=== PATIENT | male | born 1955 | race African-American/Black ===

== ENCOUNTER 2018-03-23 12:12 | Inpatient (IN) | payer BC, OTHER ==
[~2018-03-23] VITALS: Ht 182.9 cm; Wt 84.5 kg
[~2018-03-23 12:12] MED LIST: GLUCOPHAGE500 MG; IBUPROFEN 600600 M1 PO; JANUVIA25 MG; NOVOLOG100 UNIT/1 SUBQ; QUINU5 PD
[2018-03-23 12:15] VITALS: BP 152/88
[2018-03-23 12:52] LABS: HEMATOCRIT 42.4 % (42.0-52.0); HEMOGLOBIN 14.2 gm/dL (14.0-18.0); MCH 27.8 pg (26.0-34.0); MCHC 33.4 g/dL (28.0-37.0); MCV 83.2 fL (80.0-100.0); PLATELET COUNT 240 thou/uL (150-400); RDW 14.6 % (10.5-14.5); WBC 19.1 thou/uL (4.0-11.0)
[2018-03-23 12:59] LABS: URINE BILIRUBIN NEGATIVE (Negative); URINE BLOOD 3+ (Negative); URINE CLARITY CLEAR; URINE COLOR YELLOW; URINE GLUCOSE-RANDOM* 3+ (Negative); URINE KETONES 1+ (Negative); URINE LEUKOCYTES-REFLEX NEGATIVE (Negative); URINE NITRITE-REFLEX NEGATIVE (Negative); URINE PROTEIN (DIPSTICK) 3+ (Negative); URINE SPECIFIC GRAVITY >= 1.030 (1.005-1.035)
[2018-03-23 13:11] LABS: FINE GRANULAR CASTS 4-10 Moderate /LPF (None Seen)
[2018-03-23 13:12] LABS: HYALINE CASTS 0-3 Few /LPF (None Seen)
[2018-03-23 13:13] LABS: CALCIUM 9.2 mg/dL (8.5-10.1); CREATININE 1.7 mg/dL (0.7-1.3); POTASSIUM 3.7 mmol/L (3.5-5.1)
[2018-03-23 13:14] LABS: BACTERIA-REFLEX 1-9 Few /HPF (None Seen); CRYSTALS None Seen /LPF (None Seen); SQUAMOUS 0-3 Few /LPF (0-3); URINE RBC 3-10 Few /HPF (0-2); URINE WBC-REFLEX 0-5 Rare /HPF (0-5)
[2018-03-23 13:15] LABS: ALBUMIN 2.4 g/dL (3.4-5.0); TOTAL BILIRUBIN 0.6 mg/dL (<0.1-1.0); TOTAL PROTEIN 8.4 g/dL (6.4-8.2)
[2018-03-23 13:46] LABS: HCO3 25.7 mmol/L (22.0-26.0); PCO2 VENOUS 37.6 mmHg (41.0-51.0); PO2 VENOUS 29.4 mmHg (35.0-45.0)
[2018-03-23 14:40] LABS: ABSOLUTE NEUTROPHILS 16.2 thou/uL (1.4-8.2)
[2018-03-23 14:41] LABS: ANISOCYTOSIS SLIGHT
[2018-03-23 14:57] VITALS: BP 128/67
[2018-03-23 15:47] LABS: TSH 0.413 uIU/mL (0.358-3.740)
[2018-03-23 17:34] VITALS: BP 122/70
[2018-03-23 19:22] VITALS: BP 143/79
[2018-03-24 03:55] VITALS: BP 146/94
[2018-03-24 05:14] LABS: HEMATOCRIT 42.7 % (42.0-52.0); HEMOGLOBIN 14.1 gm/dL (14.0-18.0); MCH 27.7 pg (26.0-34.0); MCHC 33.1 g/dL (28.0-37.0); MCV 83.9 fL (80.0-100.0); RBC 5.09 mil/uL (4.50-6.00); RDW 14.6 % (10.5-14.5); WBC 12.4 thou/uL (4.0-11.0)
[2018-03-24 05:25] LABS: CALCIUM 8.4 mg/dL (8.5-10.1); CREATININE 1.2 mg/dL (0.7-1.3); MAGNESIUM 2.1 mg/dL (1.8-2.4); POTASSIUM 3.5 mmol/L (3.5-5.1)
[2018-03-24 05:36] LABS: HDL CHOLESTEROL 18 mg/dL (>40); TRIGLYCERIDE 215 mg/dL (<150); VLDL 43 mg/dL (<40)
[2018-03-24 05:59] LABS: CHOLESTEROL 178 mg/dL (<200)
[2018-03-24 06:00] LABS: LDL CHOLESTEROL 117 mg/dL (<100); TC:HDL 9.9 Ratio (Not establshd)
[2018-03-24 19:32] VITALS: BP 125/92
[2018-03-25 05:17] VITALS: BP 141/94
[2018-03-25 06:06] LABS: HEMATOCRIT 39.4 % (42.0-52.0); HEMOGLOBIN 12.9 gm/dL (14.0-18.0); MCH 27.1 pg (26.0-34.0); MCHC 32.6 g/dL (28.0-37.0); MCV 83.1 fL (80.0-100.0); RBC 4.75 mil/uL (4.50-6.00); RDW 14.6 % (10.5-14.5); WBC 9.1 thou/uL (4.0-11.0)
[2018-03-25 06:19] LABS: CALCIUM 7.8 mg/dL (8.5-10.1); POTASSIUM 3.5 mmol/L (3.5-5.1)
[2018-03-25 06:57] VITALS: BP 130/77
[2018-03-25 16:33] VITALS: BP 152/85
[2018-03-25 19:51] VITALS: BP 144/86
[2018-03-25 23:07] LABS: GLYCOHEMOGLOBIN (HGB A1C) 11.3 % (4.8-5.6)
[2018-03-26 04:56] VITALS: BP 150/88
[2018-03-26 06:01] LABS: HEMATOCRIT 36.2 % (42.0-52.0); HEMOGLOBIN 11.9 gm/dL (14.0-18.0); MCH 27.3 pg (26.0-34.0); MCHC 32.8 g/dL (28.0-37.0); MCV 83.4 fL (80.0-100.0); RBC 4.34 mil/uL (4.50-6.00); RDW 14.9 % (10.5-14.5)
[2018-03-26 06:05] LABS: CALCIUM 7.6 mg/dL (8.5-10.1); CREATININE 0.9 mg/dL (0.7-1.3); MAGNESIUM 2.1 mg/dL (1.8-2.4); POTASSIUM 3.7 mmol/L (3.5-5.1)
[2018-03-26 08:06] VITALS: BP 152/74
[2018-03-26] MEDS ORDERED: CIPRO500 MG PO ×2 (10:43→10:50)
[2018-03-26] MEDS ORDERED: LISINOPRIL10 MG PO (10:43)
[2018-03-26] MEDS ORDERED: MUCINEX600 MG PO (10:43)
[2018-03-26] MEDS ORDERED: LIPITOR 20 MG T20 M1 PO (10:43)
[2018-03-26] MEDS ORDERED: NOVOLOG100 UNIT/M SUBQ ×2 (10:43→10:50)
[2018-03-26] MEDS ORDERED: LANTUS100 UNIT/M SUBQ (10:43)
[2018-03-26] MEDS ORDERED: PROBIOTIC1 EAC1 PO (10:43)
[2018-03-26] MEDS ORDERED: GLUCOMETER (10:43)
[2018-03-26 11:30] VITALS: BP 152/74
== END 2018-03-26 13:00 | disposition home or self-care (01) | DRG 871 ==
LOC: ER 12:12 → EROBS 14:23 → 4E 14:23 → ENTRNSPT 03-26 13:04 → EDTRNSPTSTS 03-26 13:10
PROVIDERS: Internal Medicine; Nurse Practitioner Family
DX: A41.9 Sepsis, unspecified organism (principal); E43 Unspecified severe protein-calorie malnutrition; N17.0 Acute kidney failure with tubular necrosis; J18.1 Lobar pneumonia, unspecified organism; E87.1 Hypo-osmolality and hyponatremia; E87.0 Hyperosmolality and hypernatremia; E11.65 Type 2 diabetes mellitus with hyperglycemia; R65.20 Severe sepsis without septic shock; F17.210 Nicotine dependence, cigarettes, uncomplicated; E78.5 Hyperlipidemia, unspecified; E87.8 Other disorders of electrolyte and fluid balance, not elsewhere classified; N18.9 Chronic kidney disease, unspecified; I12.9 Hypertensive chronic kidney disease with stage 1 through stage 4 chronic kidney disease, or unspecified chronic kidney disease; E11.22 Type 2 diabetes mellitus with diabetic chronic kidney disease; Z68.25 Body mass index [BMI] 25.0-25.9, adult; Z79.899 Other long term (current) drug therapy
CPT/HCPCS: 10183

== ENCOUNTER 2020-11-04 19:25 | Inpatient (IN) | payer OTHER, BC ==
[~2020-11-04] VITALS: Ht 180.3 cm; Wt 91.6 kg
[~2020-11-04 19:25] MED LIST changes: +CIPRO500 MG PO; +GLUCOMETER; +LANTUS100 UNIT/M SUBQ; +LIPITOR 20 MG T20 M1 PO; +LISINOPRIL10 MG PO; +MUCINEX600 MG PO; +NOVOLOG100 UNIT/M SUBQ; +PROBIOTIC1 EAC1 PO
[2020-11-04 19:38] VITALS: BP 220/110
[2020-11-04] MEDS ORDERED: ZESTRIL40 MG PO (19:46)
[2020-11-04] MEDS ORDERED: BYDUREON B2 MG/0.85 SUBQ (19:47)
[2020-11-04] MEDS ORDERED: TRESIBA FL200 UNIT/1 SUBQ (19:47)
[2020-11-04] MEDS ORDERED: HUMALOG100 UNIT/1 SUBQ (19:48)
[2020-11-04 20:32] LABS: ABSOLUTE NEUTROPHILS 3.7 thou/uL (1.4-8.2); BASOPHILS 1.1 % (0.0-2.0); EOSINOPHILS 4.3 % (0.0-3.0); HEMATOCRIT 39.9 % (42.0-52.0); HEMOGLOBIN 13.4 gm/dL (14.0-18.0); LYMPHOCYTES 22.6 % (24.0-44.0); MCH 28.2 pg (26.0-34.0); MCHC 33.5 g/dL (28.0-37.0); PLATELET COUNT 292 thou/uL (150-400); RBC 4.75 mil/uL (4.50-6.00); RDW 15.2 % (10.5-14.5); WBC 6.5 thou/uL (4.0-11.0)
[2020-11-04 20:35] LABS: ANION GAP 2 mmol/L (7-16); BUN 12 mg/dL (7-18); CALCIUM 8.6 mg/dL (8.5-10.1); CHLORIDE 108 mmol/L (98-107); CO2 30 mmol/L (21-32); CREATININE 1.4 mg/dL (0.7-1.3); GLUCOSE 107 mg/dL (74-106); POTASSIUM 3.9 mmol/L (3.5-5.1); SODIUM 140 mmol/L (136-145)
[2020-11-04 20:45] LABS: ALBUMIN 2.5 g/dL (3.4-5.0); SGOT 20 U/L (15-37); SGPT 30 U/L (16-63); TOTAL BILIRUBIN 0.2 mg/dL (0.2-1.0); TOTAL PROTEIN 6.4 g/dL (6.4-8.2); TROPONIN-I <0.06 ng/mL (<0.06)
[2020-11-04 22:38] VITALS: BP 191/82
[2020-11-04 22:49] VITALS: BP 198/95
[2020-11-04 23:17] VITALS: BP 191/90
[2020-11-05] VITALS (7 sets, daily range): BP systolic 160–194; BP diastolic 66–111
--- NOTE | 2020-11-05 04:33 | NUR ---
PT FROM ER VIA CART. ADMISSION COMPLETED, CARE PLAN STARTED, INTERVENTIONS CLEANED UP AND IN PLACE. PT IS A/0X4 AND UP AD AUBREY. PT IS NPO FOR CARDIAC PROCEDURES THIS AM. POC ELEVATED BP. CONSULT TO CARDIAC GROUP WILL BE PLACED THIS AM. HOURLY ROUNDING.
[2020-11-05 06:20] LABS: ANION GAP 10 mmol/L (7-16); BUN 10 mg/dL (7-18); CALCIUM 8.3 mg/dL (8.5-10.1); CHLORIDE 107 mmol/L (98-107); CO2 25 mmol/L (21-32); CREATININE 1.2 mg/dL (0.7-1.3); GLUCOSE 157 mg/dL (74-106); POTASSIUM 3.6 mmol/L (3.5-5.1); SODIUM 142 mmol/L (136-145); TROPONIN-I <0.06 ng/mL (<0.06)
--- NOTE | 2020-11-05 07:00 | EKG ---
[place] [address] [facility] [place] [address] ELECTROCARDIOGRAM REPORT Name: HADLEY DENT Room #: 349-I ADM IN M.R.#: [id number] Admission: 11/04/20 Attend Phys: Storm Feliciano MD Discharge: Date of : 55 Report #: [id number] [facility] ED Test Date: 2020-11-04 Test Time: 20:07:52 Pat Name: HADLEY DENT Department: Room: On license of [facility] Gender: M Patient Safety Officer: ish : 1955 Requested By: Kim Whitten Order Number: [id number] MD: Guero Montes Measurements Intervals [place] Rate: 73 P: 79 UT: 135 QRS: 97 QRSD: 134 T: -89 QT: 377 QTc: 416 Interpretive Statements Sinus rhythm Probable left atrial enlargement Right bundle branch block Nonspecific T abnormalities, lateral leads No previous ECG available for comparison Electronically Signed On 11-05-2020 7:00:04 CDT by Guero Montes [email or web address] <ELECTRONICALLY SIGNED> By: Guero Montes MD, [facility] 11/05/20699 06 06 Guero Montes MD, FACC /EPI
--- NOTE | 2020-11-05 09:03 | NUR ---
INITIAL ASSESSMENT: SW reviewed chart and spoke with nursing and attending physician. Pt was admitted from home due to elevated blood pressure. BP was 216/120 upon admission. Cardiology consulted. Pt to have echo today. SW met with pt at bedside. Introduced role of SW. Pt is alert/orientated x 4. Pt reports he lives at home with his . Prior to admission, pt was independent with ADLs. No use of DME. No hx of services or post-acute placement. Pt's PCP is Dr. Coyle. Pt states that his insurance ([employer]) sends out an SPORTS ATTORNEY once a year to evaluate pt. This RN evaluated him and encouraged pt to go to the ER due to high BP. Plan is for pt to discharge home when medically stable. SW is following to assist as needed with discharge planning.
[2020-11-05 09:11] LABS: CHOLESTEROL 169 mg/dL (<200); HDL CHOLESTEROL 54 mg/dL (>40); LDL CHOLESTEROL 84 mg/dL (<100); TC:HDL 3.1 Ratio (Not establshd); TRIGLYCERIDE 159 mg/dL (<150); VLDL 32 mg/dL (<40)
--- NOTE | 2020-11-05 14:54 | 2DMMODE ---
[facility] [place] [address] 2 D/M-MODE ECHOCARDIOGRAM Name: HADLEY DENT Room #: 349-I ADM IN M.R.#: [id number] Admission: 11/04/20 Attend Phys: Rodney Nevarez MD Discharge: Date of : 55 Report #: [id number] THIS REPORT FOR: cc: Yoni Coyle James A. DO Santiago, Patrick MD [facility] ~ APPROVED REPORT Study performed: 11/05/2020 13:56:43 EXAM: Comprehensive 2D, Doppler, and color-flow Echocardiogram Patient Location: Bedside Room #: 349 Status: routine BSA: 2.10 HR: 72 bpm BP: 162/66 mmHg Rhythm: NSR Other Information Study Quality: Good Indications Abnormal ECG Hypertension/HDD 2D Dimensions RVDd: 34.04 mm IVSd: 11.61 (7-11mm) LVOT Diam: 20.65 (18-24mm) LVDd: 63.93 mm PWd: 12.00 (7-11mm) Ascending Ao: 31.45 (22-36mm) LVDs: 54.82 (25-40mm) Left Atrium: 38.59 (27-40mm) Aortic Root: 31.99 mm IVC: 13.00 mm Volumes Left Atrial Volume (Systole) Single Plane 4CH: 61.49 mL Single Plane 2CH: 55.05 mL LA ESV Index: 31.00 mL/m2 Aortic Valve AoV Peak Mannie.: 1.52 m/s AO Peak Gr.: 9.20 mmHg LVOT Max P.54 mmHg LVOT Max V: 0.94 m/s [facility] [address] [place] [address] 2 D/M-MODE ECHOCARDIOGRAM Name: HADLEY DENT Room #: 349-I ADM IN [facility].#: [id number] Admission: 11/04/20 Attend Phys: Rodney Nevarez MD Discharge: Date of : 55 Report #: [id number] NIKOS Vmax: 2.08 cm2 Mitral Valve E/A Ratio: 0.8 MV Decel. Time: 246.47 ms MV E Max Mannie.: 0.78 m/s MV A Mannie.: 0.98 m/s MV PHT: 71.47 ms IVRT: 115.34 ms Pulmonary Valve PV Peak Mannie.: 1.04 m/s PV Peak Gr.: 4.35 mmHg Pulmonary Vein P Vein S: 0.40 m/s P Vein A: 0.21 m/s P Vein D: 0.30 m/s P Vein A Dur.: 96.9 msec P Vein S/D Ratio: 1.33 Left Ventricle Left ventricle is dilated. There is global hypokinesis of the left ventricle. Mild concentric left ventricular hypertrophy. Left ventricular systolic function is mildly decreased. LVEF is 45-50%. Grade I - abnormal relaxation pattern. Right Ventricle The right ventricle is normal size. The right ventricular systolic function is normal. Atria The left atrium size is normal. The right atrium size is normal. Aortic Valve The aortic valve is normal in structure. The Aortic valve is sclerotic. No aortic regurgitation is present. There is no aortic valvular stenosis. Mitral Valve The mitral valve is normal in structure. Trace mitral regurgitation. No evidence of mitral valve stenosis. Tricuspid Valve The tricuspid valve is normal in structure. There is no tricuspid valve regurgitation noted. Pulmonic Valve [facility] [address] [place] [address] 2 D/M-MODE ECHOCARDIOGRAM Name: HADLEY DENT [place] Room #: 349-I ADM IN M.R.#: [id number] Admission: 11/04/20 Attend Phys: Rodney Nevarez MD Discharge: Date of : 55 Report #: [id number] The pulmonary valve is normal in structure. There is no pulmonic valvular regurgitation. Great Vessels The aortic root is normal in size. IVC is normal in size and collapses >50% with inspiration. Pericardium There is no pericardial effusion. <Conclusion> Left ventricle mildly dilated/mild LVH Ejection fraction 45-50% Grade 1 diastolic dysfunction Normal right ventricular size/function Normal atrial size Color-flow Doppler study was performed of the aortic/mitral/tricuspid/pulmonary valve Aortic valve mildly sclerotic without stenosis Trace mitral valve insufficiency No pericardial effusion Normal aortic root size <ELECTRONICALLY SIGNED> By: Guero Montes MD, FACC 11/05/20 1454 [id number] Guero Montes MD, FAC /INF
[2020-11-06 00:01] VITALS: BP 166/89
[2020-11-06 04:00] VITALS: BP 142/75
--- NOTE | 2020-11-06 04:22 | NUR ---
Patient making slow progress towards outcome goals Rhythm stable. Up adlib, gait steady. High blood pressure treated with Hydralazine with little relief.
[2020-11-06 05:49] LABS: HEMATOCRIT 41.3 % (42.0-52.0); HEMOGLOBIN 13.7 gm/dL (14.0-18.0); MCH 28.1 pg (26.0-34.0); MCHC 33.2 g/dL (28.0-37.0); MCV 84.7 fL (80.0-100.0); RBC 4.87 mil/uL (4.50-6.00); RDW 15.5 % (10.5-14.5); WBC 6.7 thou/uL (4.0-11.0)
[2020-11-06 06:01] LABS: CALCIUM 8.7 mg/dL (8.5-10.1); CREATININE 1.2 mg/dL (0.7-1.3); MAGNESIUM 1.8 mg/dL (1.8-2.4); PHOSPHORUS 4.1 mg/dL (2.5-4.9); POTASSIUM 3.6 mmol/L (3.5-5.1)
[2020-11-06 07:15] VITALS: BP 139/91
[2020-11-06 13:00] VITALS: BP 153/96
[2020-11-06 14:57] VITALS: BP 158/93
[2020-11-06 19:35] VITALS: BP 174/103
[2020-11-07] VITALS (8 sets, daily range): BP systolic 123–187; BP diastolic 68–97
--- NOTE | 2020-11-07 04:47 | NUR ---
Patient making some progress towards outcome goals. Hypertensive SBP 170 to 180 treated with Hydralazine x 2, most recent SBP 120's. Rhythm stable. Up adlib without difficulty.
[2020-11-07] MEDS ORDERED: PRENATAL PO (11:20)
[2020-11-07] MEDS ORDERED: CHLORTHALIDONE25 MG PO (11:20)
[2020-11-07] MEDS ORDERED: BENICAR40 MG PO (11:20)
[2020-11-07] MEDS ORDERED: VITAMIN B-1100 M2 PO (11:20)
[2020-11-07] MEDS ORDERED: AMLODIPINE BESY10 MG PO (11:20)
[2020-11-07] MEDS ORDERED: LORAZEPAM 1 MG T1 MG PO (11:20)
== END 2020-11-07 14:08 | disposition home or self-care (01) | DRG 304 ==
LOC: ER 19:25 → EROBS 22:19 → 3W 22:19
PROVIDERS: Emergency Medicine; Nurse Practitioner; Nurse Practitioner Family; ADMIT Internal Medicine; ATTEND Internal Medicine
DX: I16.0 Hypertensive urgency (principal); E43 Unspecified severe protein-calorie malnutrition; F10.139 Alcohol abuse with withdrawal, unspecified; I10 Essential (primary) hypertension; E11.9 Type 2 diabetes mellitus without complications; F17.210 Nicotine dependence, cigarettes, uncomplicated; E78.5 Hyperlipidemia, unspecified; R94.31 Abnormal electrocardiogram [ECG] [EKG]; I45.10 Unspecified right bundle-branch block; F10.129 Alcohol abuse with intoxication, unspecified; Y90.9 Presence of alcohol in blood, level not specified; Z79.4 Long term (current) use of insulin; Z79.899 Other long term (current) drug therapy
CPT/HCPCS: 10879

== ENCOUNTER → 2020-11-22 | Outpatient (CLI) | payer OTHER, BC ==
[~2020-11-22] MED LIST changes: +AMLODIPINE BESY10 MG PO; +BENICAR40 MG PO; +BYDUREON B2 MG/0.85 SUBQ; +CHLORTHALIDONE25 MG PO; +HUMALOG100 UNIT/1 SUBQ; +LORAZEPAM 1 MG T1 MG PO; +PRENATAL PO; +TRESIBA FL200 UNIT/1 SUBQ; +VITAMIN B-1100 M2 PO; +ZESTRIL40 MG PO
== END ==
LOC: SJCVC 13:28
PROVIDERS: ATTEND Internal Medicine
DX: I10 Essential (primary) hypertension (principal); I42.9 Cardiomyopathy, unspecified; E78.5 Hyperlipidemia, unspecified; E11.9 Type 2 diabetes mellitus without complications; R94.31 Abnormal electrocardiogram [ECG] [EKG]; I45.10 Unspecified right bundle-branch block; F17.210 Nicotine dependence, cigarettes, uncomplicated; Z79.82 Long term (current) use of aspirin; Z79.84 Long term (current) use of oral hypoglycemic drugs; Z79.899 Other long term (current) drug therapy; Z72.89 Other problems related to lifestyle

== ENCOUNTER → 2020-11-30 | Outpatient (CLI) | payer OTHER, BC | LOC: SJCVCIMAG 07:40 | PROVIDERS: ATTEND Internal Medicine | DX: R94.31 Abnormal electrocardiogram [ECG] [EKG] (principal); I45.10 Unspecified right bundle-branch block; I10 Essential (primary) hypertension; E11.9 Type 2 diabetes mellitus without complications; E78.5 Hyperlipidemia, unspecified; Z72.89 Other problems related to lifestyle; Z79.82 Long term (current) use of aspirin; Z79.4 Long term (current) use of insulin; Z79.899 Other long term (current) drug therapy ==

== ENCOUNTER → 2021-01-17 | Outpatient (CLI) | payer OTHER, BC | LOC: SJCVC 13:20 | PROVIDERS: ATTEND Internal Medicine | DX: I10 Essential (primary) hypertension (principal); E11.9 Type 2 diabetes mellitus without complications; E78.5 Hyperlipidemia, unspecified; Z72.89 Other problems related to lifestyle; Z79.82 Long term (current) use of aspirin; Z79.899 Other long term (current) drug therapy ==

== ENCOUNTER → 2021-02-28 | Outpatient (CLI) | payer OTHER, BC | LOC: SJCVCIMAG 07:38 | PROVIDERS: ATTEND Internal Medicine | DX: I08.1 Rheumatic disorders of both mitral and tricuspid valves (principal); I10 Essential (primary) hypertension; E11.9 Type 2 diabetes mellitus without complications; E78.5 Hyperlipidemia, unspecified; F17.210 Nicotine dependence, cigarettes, uncomplicated; Z79.82 Long term (current) use of aspirin; Z79.4 Long term (current) use of insulin; Z79.899 Other long term (current) drug therapy; Z72.89 Other problems related to lifestyle ==

== ENCOUNTER → 2021-08-01 | Outpatient (CLI) | payer MEDICARE | LOC: SJCVC 14:32 | PROVIDERS: ATTEND Internal Medicine | DX: R94.31 Abnormal electrocardiogram [ECG] [EKG] (principal); I45.10 Unspecified right bundle-branch block; I10 Essential (primary) hypertension; Z13.220 Encounter for screening for lipoid disorders; E11.9 Type 2 diabetes mellitus without complications; E78.5 Hyperlipidemia, unspecified; F17.210 Nicotine dependence, cigarettes, uncomplicated; Z72.89 Other problems related to lifestyle; Z79.82 Long term (current) use of aspirin; Z79.4 Long term (current) use of insulin; Z79.899 Other long term (current) drug therapy ==